=== PATIENT | female | born 1945 | race Caucasian/White ===

== ENCOUNTER 2018-10-16 23:07 | Emergency (ER) | payer MEDICARE, MEDICAID ==
[~2018-10-16] VITALS: Ht 154.9 cm; Wt 59.4 kg
--- NOTE | 2018-10-16 23:30 | NUR ---
pt came in with severe pain in her back even though she has narcotic prescribed and getting prednisone injection
[2018-10-16] MEDS ORDERED: HYDR-3326 PO (23:38)
[2018-10-16] MEDS ORDERED: TRAM50TA2 PO (23:38)
[2018-10-16] MEDS ORDERED: ZOLP10TA6 PO (23:38)
[2018-10-16] MEDS ORDERED: OMEG1CAP55 PO (23:38)
[2018-10-16] MEDS ORDERED: PRAV20TA4 PO (23:38)
[2018-10-16] MEDS ORDERED: ESOM40CA PO (23:38)
[2018-10-16] MEDS ORDERED: ACET-73 PO (23:38)
[2018-10-16] MEDS ORDERED: SITA1TAB6 PO (23:38)
[2018-10-16] MEDS ORDERED: ONDANSETRON 4 MG/2 ML VIAL ONE (23:42)
[2018-10-16] MEDS ORDERED: MORPHINE SULFATE 2 MG/1 ML DISP.SYRIN ONE (23:42)
[2018-10-16 23:50] LABS: BASOPHILS # (AUTO) 0.1 K/uL (0.0-8.0); BASOPHILS % (AUTO) 0.5 % (0.0-2.0); EOSINOPHILS # (AUTO) 0.1 K/uL (0.0-0.7); EOSINOPHILS % (AUTO) 0.3 % (0.0-7.0); HEMATOCRIT 38.1 % (31.2-41.9); HEMOGLOBIN 12.5 g/dL (10.9-14.3); LYMPHOCYTES # (AUTO) 0.9 K/uL (20.0-40.0); LYMPHOCYTES % (AUTO) 5.5 % (20.5-51.5); MEAN CORPUSCULAR HEMOGLOBIN 27.7 uug (24.7-32.8); MEAN CORPUSCULAR HGB CONC 33 g/dL (32.3-35.6); MEAN CORPUSCULAR VOLUME 84.7 fL (75.5-95.3); MONOCYTES # (AUTO) 0.9 K/uL (2.0-10.0); MONOCYTES % (AUTO) 5.5 % (0.0-11.0); NEUTROPHILS # (AUTO) 14.2 K/uL (1.8-8.9); NEUTROPHILS % (AUTO) 88.2 % (38.5-71.5); PLATELET COUNT (AUTO) 394 K/uL (179-408); WHITE BLOOD COUNT (AUTO) 16.1 K/uL (3.8-11.8)
[2018-10-16] MEDS: IV NORMAL SALINE 1000 ML BAG IV ONE (23:50)
[2018-10-16] MEDS: ONDANSETRON 4 MG/2 ML VIAL IV ONE (23:51)
[2018-10-16] MEDS: MORPHINE SULFATE 2 MG/1 ML DISP.SYRIN IV ONE (23:51)
[2018-10-16 23:53] LABS: CARBON DIOXIDE 24 mmol/L (21-32); CHLORIDE 100 mmol/L (98-107); CREATININE 1.2 mg/dL (0.6-1.3); GLUCOSE 231 mg/dL (74-106); POTASSIUM 4.7 mmol/L (3.5-5.1); UREA NITROGEN, BLOOD 17 mg/dL (7-18)
[2018-10-16 23:58] LABS: ALANINE AMINOTRANSFERASE 16 U/L (14-59); ALKALINE PHOSPHATASE 58 U/L (50-136); ASPARTATE AMINOTRANSFERASE 13 U/L (15-37); BILIRUBIN,DIRECT 0.1 mg/dL (0.0-0.2); BILIRUBIN,TOTAL 0.2 mg/dL (0.2-1.0); TOTAL PROTEIN, SERUM 7.5 g/dL (6.4-8.2)
[2018-10-17] MEDS ORDERED: IOHEXOL 350 100 ML INFUS..BTL ONE (00:19)
[2018-10-17] MEDS ORDERED: IV NORMAL SALINE 250 ML IV ONE (00:19)
[2018-10-17] MEDS ORDERED: SWABABLE VALVE TRANSFER SET EA MC ONE (00:19)
--- NOTE | 2018-10-17 00:30 | NUR ---
was med time one with morphine, zofran and a liter normal saline with effect denies allergy and med teaching were given comfort and safety maintained
[2018-10-17 00:46] LABS: *BILIRUBIN,URIN NEGATIVE (NEGATIVE); *BLOOD, URINE 1+ (NEGATIVE); *CLARITY,URINE CLEAR (CLEAR); *KETONES,URINE NEGATIVE (NEGATIVE); *UROBILINOGEN,URINE 0.2 E.U./dl (NORMAL); LEUKOCYTE ESTERASE ,URINE NEGATIVE (NEGATIVE); NITRITE, URINE NEGATIVE (NEGATIVE); PH,URINE 5.5 (5.0-8.0); UGLUCOSE NEGATIVE (NEGATIVE)
[2018-10-17 00:59] LABS: *COLOR,URINE STRAW (YELLOW)
[2018-10-17 01:04] LABS: BACTERIA,URINE NONE SEEN /HPF (NONE SEEN); SQUAMOUS EPITHELIAL CELL,UR FEW /HPF (NONE SEEN); WBC,URINE NONE SEEN /HPF (0-3)
--- NOTE | 2018-10-17 02:00 | NUR ---
came back from ct scan mena well without incident
[2018-10-17] MEDS ORDERED: CEphaleXIN 250 MG CAPSULE ONE (02:07)
[2018-10-17] MEDS ORDERED: LIDOCAINE 5% PATCH TD ONE (02:08)
[2018-10-17] MEDS: LIDOCAINE 5% PATCH TD ONE (02:14)
[2018-10-17] MEDS: CEphaleXIN 250 MG CAPSULE PO ONE (02:14)
--- NOTE | 2018-10-17 02:15 | NUR ---
was med time one with keflex and a lidocaine patch teaching given denied allergy
--- NOTE | 2018-10-17 02:30 | NUR ---
pt discharge to home with son hl removed site wnl discharge teaching and prescriptions teaching given also all personal belonging given to pt condition stable denies pain/discomfort at this time
[2018-10-17 02:36] VITALS: BP 143/77
== END 2018-10-17 02:30 | disposition home or self-care (01) ==
LOC: ER 23:07
DX: M54.9 Dorsalgia, unspecified (principal); R30.0 Dysuria; E78.00 Pure hypercholesterolemia, unspecified; E11.9 Type 2 diabetes mellitus without complications; Z79.899 Other long term (current) drug therapy
CPT/HCPCS: 36415; 71275; 80048; 80076; 81000; 81001; 83880; 84484; 85025; 85730; 87086; 93005; 96374; 96375; 99284; J2270; J2405; Q9967; 70030-TC; A4663; J7030; J7050

== ENCOUNTER 2025-04-06 10:23 | Inpatient (IN) | payer MEDICARE, OTHER ==
[~2025-04-06] VITALS: Ht 154.9 cm; Wt 63.5 kg
[~2025-04-06 10:23] MED LIST: ACET-73 PO; ESOM40CA PO; HYDR-3326 PO; OMEG1CAP55 PO; PRAV20TA60 PO; SITA1TAB6 PO; TRAM50TA2 PO; ZOLP10TA6 PO
[2025-04-06 13:33] VITALS: BP 137/75; TEMP 98
[2025-04-06 13:48] VITALS: BP 137/75; TEMP 98
[2025-04-06] MEDS ORDERED: GABA300C PO (18:21)
[2025-04-06] MEDS ORDERED: DOCU100C36 PO (18:21)
[2025-04-06] MEDS ORDERED: SENN8.6T19 PO (18:21)
[2025-04-06] MEDS ORDERED: AMLO2.5T4 PO (18:22)
[2025-04-06] MEDS ORDERED: CLON1TAB12 PO (18:23)
[2025-04-06] MEDS ORDERED: CYAN-10 IM (18:25)
[2025-04-06] MEDS ORDERED: DORZ10DR11 EACHEYE (18:25)
[2025-04-06] MEDS ORDERED: EMPA25TA PO (18:26)
[2025-04-06] MEDS ORDERED: ERGO125010 PO (18:26)
[2025-04-06] MEDS ORDERED: ICOS1CAP PO (18:27)
[2025-04-06] MEDS ORDERED: OMEP40CA21 PO (18:29)
[2025-04-06] MEDS ORDERED: METO-356 PO (18:29)
[2025-04-06] MEDS ORDERED: LOSA50TA39 PO (18:29)
[2025-04-06] MEDS ORDERED: HYDROCODONE/APAP 5-325MG TABLET PO PRN (19:30)
[2025-04-06 20:38] VITALS: BP 109/34; TEMP 97.8; O2SAT 96
[2025-04-06] MEDS: HYDROCODONE/APAP 5-325MG TABLET PO SCH (20:54)
[2025-04-06] MEDS: PREGABALIN 50 MG CAPSULE PO PRN (20:54)
[2025-04-06] MEDS ORDERED: ACETAMINOPHEN ES 500 MG TABLET- SA PATIENTS-PAIN ONLY PO PRN (21:15)
[2025-04-06] MEDS ORDERED: DEXTROSE 50% 50 ML DISP.SYRIN IV PRN (21:15)
[2025-04-06] MEDS: TRAMADOL HCL 50 MG TABLET PO SCH (22:00)
[2025-04-06] MEDS: GABAPENTIN 300 MG CAPSULE PO SCH (22:00)
[2025-04-07 06:54] VITALS: BP 150/63; TEMP 98.6; O2SAT 97
[2025-04-07] MEDS: PANTOPRAZOLE SODIUM 40 MG TABLET.DR PO SCH (07:02)
[2025-04-07] MEDS: BLOOD SUGAR DIAGNOSTIC 1 EACH STRIP VI SCH (07:07)
[2025-04-07 07:54] VITALS: BP 104/49; TEMP 97.6; O2SAT 96
[2025-04-07] MEDS: AMLODIPINE 2.5 MG TABLET PO SCH (09:00)
[2025-04-07] MEDS: LOSARTAN POTASSIUM 50 MG TABLET PO SCH (09:00)
[2025-04-07] MEDS: DOCUSATE SODIUM 100 MG CAPSULE PO SCH (09:09)
[2025-04-07] MEDS: METOPROLOL SUCCINATE XL 25 MG TAB.SR.24H PO SCH (09:12)
[2025-04-07] MEDS: HYDROCODONE/APAP 5-325MG TABLET PO PRN (09:12)
[2025-04-07] MEDS: SENNOSIDES 1 TABLET PO SCH (09:13)
[2025-04-07] MEDS: METFORMIN HCL 500 MG TABLET PO SCH (09:16)
[2025-04-07] MEDS: DORZOLAMIDE/TIMOLOL OPHT DROP 10 ML BOTTLE EACHEYE SCH (10:09)
[2025-04-07] MEDS ORDERED: DEXTROSE 50% 50 ML DISP.SYRIN IV PRN (10:45)
[2025-04-07] MEDS ORDERED: INSULIN REGULAR, HUMAN 1000 UNIT/10 ML VIAL SQ PRN (10:45)
[2025-04-07] MEDS: MAGNESIUM HYDROXIDE 30 ML LIQUID UDC PO PRN (11:22)
[2025-04-07] MEDS ORDERED: BLOOD SUGAR DIAGNOSTIC 1 EACH STRIP VI SCH (11:30)
[2025-04-07] MEDS ORDERED: GLIM1TAB57 PO (12:32)
[2025-04-07] MEDS ORDERED: ROSU20TA2 PO (12:35)
[2025-04-07 16:00] VITALS: BP 143/64; TEMP 97.8; O2SAT 96
[2025-04-07] MEDS: CLONAZEPAM 1 MG TABLET PO SCH (21:25)
[2025-04-07] MEDS: INSULIN REGULAR, HUMAN 1000 UNIT/10 ML VIAL SQ PRN (21:35)
[2025-04-07 22:06] VITALS: BP 132/72; TEMP 98.5; O2SAT 95
[2025-04-08 06:43] VITALS: BP 132/45; TEMP 98.5; O2SAT 95
[2025-04-08 08:00] VITALS: BP 155/70; TEMP 98.5; O2SAT 92
[2025-04-08] MEDS: ERGOCALCIFEROL 50,000 UNIT CAPSULE PO SCH (09:28)
[2025-04-08 17:00] VITALS: BP 136/54; TEMP 98.4; O2SAT 93
[2025-04-08 19:41] VITALS: BP 136/54; TEMP 98.4; O2SAT 91
[2025-04-08] MEDS ORDERED: NITROGLYCERIN 0.4 MG/TAB BOTTLE SL PRN (22:15)
[2025-04-08] MEDS ORDERED: MAG HYDROX/AL HYDROX/SIMETH 30 ML LIQUID UDC PO PRN (23:00)
[2025-04-09] MEDS: DEXAMETHASONE SOD PHOSPHATE 4 MG INJ IV SCH (00:14)
[2025-04-09] MEDS: ACETAMINOPHEN 500 MG TABLET PO PRN (00:30)
[2025-04-09 06:00] VITALS: BP 127/49; TEMP 98.2; O2SAT 94
[2025-04-09 08:03] VITALS: BP 119/51; TEMP 97.8; O2SAT 93
[2025-04-09 16:03] VITALS: BP 120/49; TEMP 97.6; O2SAT 96
[2025-04-09 23:04] VITALS: BP 161/68; TEMP 97.5; O2SAT 95
[2025-04-10 06:37] VITALS: BP 128/47; TEMP 97.8; O2SAT 98
[2025-04-10 08:04] VITALS: BP 143/66; TEMP 97.7; O2SAT 94
[2025-04-10] MEDS: KETOROLAC TROMETHAMINE 30 MG INJ IM ONE (13:28)
[2025-04-10] MEDS: METHOCARBAMOL 500 MG TABLET PO SCH (14:09)
[2025-04-10] MEDS: LIDOCAINE 5% PATCH TD SCH (14:32)
[2025-04-10 16:11] VITALS: BP 129/50; TEMP 97.7; O2SAT 98
[2025-04-10] MEDS: APIXABAN 2.5 MG TABLET PO SCH (18:09)
[2025-04-10 20:00] VITALS: BP 117/42; TEMP 98.1; O2SAT 96
[2025-04-11] MEDS: TRAMADOL HCL 50 MG TABLET PO SCH (00:05)
[2025-04-11 06:13] VITALS: BP 134/55; TEMP 97.4; O2SAT 95
[2025-04-11 08:21] VITALS: BP 142/51; TEMP 98.1; O2SAT 97
[2025-04-11] MEDS: BISACODYL 5 MG TABLET.DR PO PRN (12:12)
[2025-04-11 16:05] VITALS: BP 133/48; TEMP 98.3; O2SAT 97
[2025-04-11] MEDS: DEXAMETHASONE SOD PHOSPHATE 4 MG INJ IV SCH (17:15)
[2025-04-11] MEDS: KETOROLAC TROMETHAMINE 30 MG INJ IM ONE (18:26)
[2025-04-11 19:35] VITALS: BP 110/43; TEMP 97.4; O2SAT 95
[2025-04-12 05:59] LABS: PLATELET COUNT (AUTO) 310 K/uL (179-408); RED BLOOD CELL COUNT(AUTO) 4.20 MIL/uL (3.63-4.92); RED CELL DISTRIBUTION WIDTH 20.1 % (12.3-17.7); WHITE BLOOD COUNT (AUTO) 10.8 K/uL (3.8-11.8)
[2025-04-12] MEDS: DEXAMETHASONE SOD PHOSPHATE 4 MG INJ IV SCH (06:04)
[2025-04-12 06:05] LABS: CREATININE 1.4 mg/dL (0.6-1.3); SODIUM SERUM 135 mmol/L (136-145); UREA NITROGEN, BLOOD 54 mg/dL (7-18)
[2025-04-12 07:11] LABS: EOSINOPHILS % (MANUAL) 1 % (0-8); LYMPHOCYTES % (MANUAL) 13 % (20-40); MONOCYTES % (MANUAL) 11 % (2-10); NEUTROPHILS % (MANUAL) 76 % (42-75); PLATELET ESTIMATE ADEQUATE
[2025-04-12 07:48] VITALS: BP 148/44; TEMP 97.5; O2SAT 97
[2025-04-12 10:31] LABS: *BILIRUBIN,URIN NEGATIVE (NEGATIVE); *BLOOD, URINE NEGATIVE (NEGATIVE); *CLARITY,URINE CLEAR (CLEAR); *COLOR,URINE YELLOW (YELLOW); *KETONES,URINE NEGATIVE (NEGATIVE); *PROTEIN,URINE NEGATIVE (NEGATIVE); *UROBILINOGEN,URINE 0.2 E.U./dl (NORMAL); LEUKOCYTE ESTERASE ,URINE NEGATIVE (NEGATIVE); NITRITE, URINE NEGATIVE (NEGATIVE); UGLUCOSE TRACE (NEGATIVE)
[2025-04-12 10:40] LABS: *CREATININE,URINE 67.6 mg/dL (30-125); *SODIUM RNDM,URINE 18.0 mmol/L (40-220); *URINE TOTAL PROTEIN RANDOM 14.2 mg/dL (<150/24HR)
[2025-04-12 10:41] LABS: SQUAMOUS EPITHELIAL CELL,UR FEW /HPF (NONE SEEN)
[2025-04-12] MEDS: KETOROLAC TROMETHAMINE 30 MG INJ IM ONE (13:15)
[2025-04-12 17:00] VITALS: BP 122/44; TEMP 97.7; O2SAT 96
[2025-04-12 19:35] VITALS: BP 131/49; TEMP 98.8; O2SAT 97
[2025-04-12] MEDS: OXYCODONE/APAP 5-325 MG TABLET PO PRN (22:43)
[2025-04-13 05:00] VITALS: BP 139/52; TEMP 98.4; O2SAT 100
[2025-04-13 06:50] LABS: PLATELET COUNT (AUTO) 323 K/uL (179-408); RED BLOOD CELL COUNT(AUTO) 4.32 MIL/uL (3.63-4.92); RED CELL DISTRIBUTION WIDTH 20.8 % (12.3-17.7); WHITE BLOOD COUNT (AUTO) 9.9 K/uL (3.8-11.8)
[2025-04-13 07:05] LABS: ASPARTATE AMINOTRANSFERASE 9 U/L (15-37); CREATINE KINASE, TOTAL 20 U/L (26-192); CREATININE 1.3 mg/dL (0.6-1.3); SODIUM SERUM 137 mmol/L (136-145); TOTAL PROTEIN, SERUM 6.0 g/dL (6.4-8.2); UREA NITROGEN, BLOOD 45 mg/dL (7-18)
[2025-04-13 08:13] VITALS: BP 126/56; TEMP 98.4; O2SAT 97
[2025-04-13 16:24] VITALS: BP 150/50; TEMP 98.3; O2SAT 95
[2025-04-13 20:00] VITALS: BP 123/44; TEMP 97.6; O2SAT 99
[2025-04-14] MEDS: HYDROMORPHONE 1 MG/1 ML DISP.SYRIN IM PRN (01:26)
[2025-04-14 06:05] VITALS: BP 147/56; TEMP 98.2; O2SAT 95
[2025-04-14 08:50] VITALS: BP 141/48; TEMP 98.5; O2SAT 95
[2025-04-14] MEDS: KETOROLAC TROMETHAMINE 30 MG INJ IVP ONE ×2 (13:15→21:54)
[2025-04-14 19:00] VITALS: BP 142/54; TEMP 98.2; O2SAT 97
[2025-04-14] MEDS: GABAPENTIN 100 MG CAPSULE PO SCH (21:53)
[2025-04-15 04:00] VITALS: BP 116/95; TEMP 97.6; O2SAT 96
[2025-04-15 07:33] VITALS: BP 156/46; TEMP 98.8; O2SAT 94
[2025-04-15 16:00] VITALS: BP 146/39; TEMP 98.6; O2SAT 97
[2025-04-15 19:24] VITALS: BP 120/45; TEMP 98.1; O2SAT 100
[2025-04-16 05:31] VITALS: BP 124/45; TEMP 97.4; O2SAT 97
[2025-04-16 08:00] VITALS: BP 132/58; TEMP 98.2; O2SAT 97
[2025-04-16 12:00] VITALS: BP 125/45; TEMP 97.2; O2SAT 99
[2025-04-16 16:00] VITALS: BP 136/55; TEMP 97.8; O2SAT 97
[2025-04-16 19:31] VITALS: BP 118/46; TEMP 97.8; O2SAT 96
[2025-04-17 00:20] VITALS: BP 121/71; TEMP 98.5; O2SAT 97
[2025-04-17 05:18] VITALS: BP 124/76; TEMP 98; O2SAT 93
[2025-04-17 08:01] VITALS: BP 141/52; TEMP 97.3; O2SAT 97
[2025-04-17 08:59] VITALS: BP 141/52
[2025-04-17 14:39] VITALS: TEMP 97.3
[2025-05-06] MEDS ORDERED: CYANOCOBALAMIN 1000 MCG/ML VIAL IM SCH (09:00)
== END 2025-04-17 15:00 | disposition home health service (06) | DRG 552 ==
PROVIDERS: ADMIT Physical Medicine & Rehabilitation Pain Medicine; ATTEND Physical Medicine & Rehabilitation Pain Medicine
DX: M47.26 Other spondylosis with radiculopathy, lumbar region (principal); N17.9 Acute kidney failure, unspecified; E11.9 Type 2 diabetes mellitus without complications; I10 Essential (primary) hypertension; M79.604 Pain in right leg; G89.18 Other acute postprocedural pain; G89.29 Other chronic pain; R53.1 Weakness; E87.5 Hyperkalemia; Z74.09 Other reduced mobility
CPT/HCPCS: 36415; 70030-TC; 83735; 83921; 83970; 84100; 84300; 84443; 84484; 85025; 93005; 97535-GO-CO; A4663; A9150; J1100; J1171; J1815; J1885

== ENCOUNTER 2025-04-15 09:36 | Day surgery (SDC) | payer MEDICARE, OTHER ==
[~2025-04-15 09:36] MED LIST changes: +AMLO2.5T4 PO; +CLON1TAB12 PO; +CYAN-10 IM; +DOCU100C36 PO; +DORZ10DR11 EACHEYE; +EMPA25TA PO; +ERGO125010 PO; -ESOM40CA PO; +GABA300C PO; +GLIM1TAB57 PO; -HYDR-3326 PO; +ICOS1CAP PO; +METO-356 PO; -OMEG1CAP55 PO; +OMEP40CA21 PO; -PRAV20TA60 PO; +ROSU20TA2 PO; +SENN8.6T19 PO; -ZOLP10TA6 PO
[2025-04-15] MEDS ORDERED: TRIAMCINOLONE ACETONIDE 40 MG/1 ML VIAL ONE (10:47)
[2025-04-15] MEDS ORDERED: IOHEXOL 300 MG/ML 10 ML VIAL ONE (10:47)
[2025-04-15] MEDS ORDERED: BUPIVACAINE PF 0.5% 30 ML VIAL ONE (10:51)
[2025-04-15] MEDS ORDERED: CEFAZOLIN 1 G VIAL ONE ×2 (12:00)
[2025-04-15] MEDS ORDERED: LIDOCAINE-MPF 2% 5 ML VIAL ONE (12:00)
[2025-04-15] MEDS ORDERED: PROPOFOL 200 MG/20 ML BOTTLE ONE (12:00)
[2025-04-15 12:56] VITALS: BP 147/49; TEMP 99.2
== END 2025-04-15 13:01 | disposition still patient (30) ==
LOC: DS 09:36
PROVIDERS: ATTEND Physical Medicine & Rehabilitation Pain Medicine
DX: M51.26 Other intervertebral disc displacement, lumbar region (principal); M51.360 Other intervertebral disc degeneration, lumbar region with discogenic back pain only; E11.9 Type 2 diabetes mellitus without complications; E78.00 Pure hypercholesterolemia, unspecified; Z79.899 Other long term (current) drug therapy; Z98.890 Other specified postprocedural states
CPT/HCPCS: 62323; 72100; J3490 ×2; J0690 ×2; Q9967; J3301